=== PATIENT | female | born 1955 | race African-American/Black ===

== ENCOUNTER 2024-05-23 10:29 | Emergency (ER) | payer MEDICARE ==
[~2024-05-23] VITALS: Ht 165.1 cm; Wt 88.5 kg
[2024-05-23 10:36] VITALS: PULSE 77; RESP 18; TEMP 96.6; O2SAT 100
[2024-05-23] MEDS: LIDOCAINE/PRILOCAINE 2.5-2.5% KIT TOP ONE (11:01)
== END 2024-05-23 11:15 | disposition home or self-care (01) ==
LOC: ER 10:33
DX: T22.411A Corrosion of unspecified degree of right forearm, initial encounter (principal); Y93.H3 Activity, building and construction; Y92.89 Other specified places as the place of occurrence of the external cause; I10 Essential (primary) hypertension; E11.9 Type 2 diabetes mellitus without complications; I50.9 Heart failure, unspecified; E78.5 Hyperlipidemia, unspecified; Z85.3 Personal history of malignant neoplasm of breast
CPT/HCPCS: 99283